=== PATIENT | male | born 1975 | race Caucasian/White ===

== ENCOUNTER 2017-05-08 04:50 | Emergency (ER) | payer SELFPAY ==
[~2017-05-08] VITALS: Ht 167.6 cm; Wt 104.3 kg
--- NOTE | 2017-05-08 05:18 | ED General ---
General Chief Complaint: General Problems/Pain Stated Complaint: POSS ALLERGIC RXN,MIND RACING Nursing Triage Note: Patient reports last wednesday the . he got off work and bought a 'bottle' of whiskey and one thing lead to another and he used meth on wednesday the . Patient reports he was okay and had been sleeping fine until the . He then began to have racing thoughts and unable to sleep. patient reports that he went and obtained more whiskey and nyquil in an attempt to sleep. Patient states it 'had the opposite effect' Nursing Sepsis Screen: No Definite Risk Source of Information: Patient History of Present Illness Date Seen by Provider: May 08, 2017 Time Seen by Provider: 05:07 Initial Comments PT ARRIVES VIA POV STATES "I THINK I DID SOME BAD DRUGS"--STATES HE USED METH ON SUNDAY 04/30, MONDAY 05/01 AND TUESDAY 05/02 "AND I WAS SLEEPING FINE" STATES "TODAY I FELT OFF" "SO I GOT 1/2 PINT OF WHISKEY AND IT HAD THE OPPOSITE EFFECT" --"I DIDN'T GET DRUNK OR SLEEPY" "BEEN HAVING RACING THOUGHTS AND CAN'T SLEEP" ALSO TOOK NYQUIL AND IT DIDN'T HELP GIVES NURSE SLIGHTLY DIFFERENT STORY PT STATES "I JUST GOT OFF HARVONI A WEEK AND A HALF AGO" PCP: DR. Katlin COLON AT [facility] Allergies and Home Medications Allergies Coded Allergies: No Known Drug Allergies (Unverified , 10/08/15) Home Medications No Active Prescriptions or Reported Meds Patient Home Medication List Home Medication List Reviewed: Yes Constitutional: other (ANXIOUS, CAN'T SLEEP) Respiratory: no symptoms reported Cardiovascular: no symptoms reported Gastrointestinal: no symptoms reported Genitourinary: no symptoms reported Musculoskeletal: no symptoms reported Skin: no symptoms reported Psychiatric/Neurological: See HPI, Anxiety Hematologic/Lymphatic: No Symptoms Reported Immunological/Allergic: no symptoms reported Past Caxcnnp-Kyxdbe-Tnliju Hx Patient Social History Alcohol Use: Occasionally Uses (HEAVY AT TIMES) Recreational Drug Use: Yes (THC, + IV METH USE ) Recent Foreign Travel: No Contact w/Someone Who Travel: No Recent Infectious Disease Expo: No Recent Hopitalizations: No Physical Abuse: No Sexual Abuse: No Surgeries History of Surgeries: Yes (TUBES IN EARS) Surgeries: Ear Surgery, Gallbladder Respiratory History of Respiratory Disorde: No Cardiovascular History of Cardiac Disorders: No Neurological History of Neurological Disord: No Gastrointestinal History of Gastrointestinal Di: Yes (HEPATITIS C--TX WITH HARVONI-COMPLETED 2017) Gastrointestinal Disorders: Hepatitis Musculoskeletal History of Musculoskeletal Dis: No Endocrine History of Endocrine Disorders: No HEENT History of HEENT Disorders: Yes HEENT Disorders: Chronic Ear Infection Cancer History of Cancer: No Psychosocial History of Psychiatric Problem: No Suicide Risk Score: 0 Integumentary History of Skin or Integumenta: No Blood Transfusions History of Blood Disorders: No Physical Exam Vital Signs Vital Signs - First Documented 05/08/17 05:01 Temp 98.2 Pulse 118 Resp 18 B/P (MAP) 154/99 (117) Pulse Ox 100 Capillary Refill : Less Than 3 Seconds General Appearance: Anxious, Other (FREQUENT CLEARING THROAT, MILD HYPERVENTILATION) HEENT: PERRL/EOMI Respiratory: Normal Breath Sounds, No Accessory Muscle Use, No Respiratory Distress Cardiovascular: Regular Rate, Rhythm, No Murmur Extremity: Normal Inspection Neurologic/Psychiatric: Alert, Oriented x3, No Motor/Sensory Deficits, reference services head II- XII Norm as Tested, Other (ANXIOUS, RATE OF SPEECH SLIGHTLY ELEVATED) Skin: Normal Color, Warm/Dry, Other (SORES/SCARS/SCABS TO FACE) Progress/Results/Core Measures Suspected Sepsis Recent Fever Within 48 Hours: No Infection Criteria Present: None New/Unexplained Altered Menta: No Sepsis Screen: No Definite Risk Sepsis Diagnosis: SIRS Temperature:98.2 Pulse: 118 Respiratory Rate: 18 Laboratory Tests 05/08/17 05:20: White Blood Count 6.0 Blood Pressure 154 /99 Mean: 117 Laboratory Tests 05/08/17 05:20: Creatinine 0.94, Platelet Count 271, Total Bilirubin 0.7 Results/Orders Lab Results Laboratory Tests Test 05/08/17 05:20 Range/Units White Blood Count 6.0 4.3-11.0 10^3/uL Red Blood Count 4.97 4.35-5.85 10^6/uL Hemoglobin 15.8 13.3-17.7 G/DL Hematocrit 44 40-54 % Mean Corpuscular Volume 88 80-99 FL Mean Corpuscular Hemoglobin 32 25-34 PG Mean Corpuscular Hemoglobin Concent 36 32-36 G/DL Red Cell Distribution Width 13.2 10.0-14.5 % Platelet Count 271 130-400 10^3/uL Mean Platelet Volume 9.8 7.4-10.4 FL Neutrophils (%) (Auto) 59 42-75 % Lymphocytes (%) (Auto) 31 12-44 % Monocytes (%) (Auto) 9 0-12 % Eosinophils (%) (Auto) 1 0-10 % Basophils (%) (Auto) 0 0-10 % Neutrophils # (Auto) 3.5 1.8-7.8 X 10^3 Lymphocytes # (Auto) 1.9 1.0-4.0 X 10^3 Monocytes # (Auto) 0.5 0.0-1.0 X 10^3 Eosinophils # (Auto) 0.1 0.0-0.3 10^3/uL Basophils # (Auto) 0.0 0.0-0.1 10^3/uL Urine Color YELLOW Urine Clarity CLEAR Urine pH 6 5-9 Urine Specific Nixon 1.010 L 1.016-1.022 Urine Protein 2+ H NEGATIVE Urine Glucose (UA) NEGATIVE NEGATIVE Urine Ketones 3+ H NEGATIVE Urine Nitrite NEGATIVE NEGATIVE Urine Bilirubin NEGATIVE NEGATIVE Urine Urobilinogen NORMAL NORMAL MG/DL Urine Leukocyte Esterase NEGATIVE NEGATIVE Urine RBC (Auto) NEGATIVE NEGATIVE Urine RBC NONE /HPF Urine WBC NONE /HPF Urine Squamous Epithelial Cells RARE /HPF Urine Crystals NONE /LPF Urine Bacteria TRACE /HPF Urine Casts NONE /LPF Urine Mucus NEGATIVE /LPF Urine Culture Indicated NO Sodium Level 138 135-145 MMOL/L Potassium Level 3.9 3.6-5.0 MMOL/L Chloride Level 101 98-107 MMOL/L Carbon Dioxide Level 23 21-32 MMOL/L Anion Gap 14 5-14 MMOL/L Blood Urea Nitrogen 13 7-18 MG/DL Creatinine 0.94 0.60-1.30 MG/DL Estimat Glomerular Filtration Rate > 60 BUN/Creatinine Ratio 14 Glucose Level 115 H 70-105 MG/DL Calcium Level 10.0 8.5-10.1 MG/DL Total Bilirubin 0.7 0.1-1.0 MG/DL Aspartate Amino Transf (AST/SGOT) 23 5-34 U/L Alanine Aminotransferase (ALT/SGPT) 22 0-55 U/L Alkaline Phosphatase 67 40-136 U/L Total Protein 8.7 H 6.4-8.2 GM/DL Albumin 4.3 3.2-4.5 GM/DL Salicylates Level < 5.0 L 5.0-20.0 MG/DL Urine Opiates Screen NEGATIVE NEGATIVE Urine Oxycodone Screen NEGATIVE NEGATIVE Urine Methadone Screen NEGATIVE NEGATIVE Urine Propoxyphene Screen NEGATIVE NEGATIVE Acetaminophen Level < 10 L 10-30 UG/ML Urine Barbiturates Screen NEGATIVE NEGATIVE Ur Tricyclic Antidepressants Screen NEGATIVE NEGATIVE Urine Phencyclidine Screen NEGATIVE NEGATIVE Urine Amphetamines Screen NEGATIVE NEGATIVE Urine Methamphetamines Screen NEGATIVE NEGATIVE Urine Benzodiazepines Screen NEGATIVE NEGATIVE Urine Cocaine Screen NEGATIVE NEGATIVE Urine Cannabinoids Screen NEGATIVE NEGATIVE Serum Alcohol < 10 <10 MG/DL My Orders Orders - NABEEL HUNTER DO Acetaminophen (05/08/17 05:12) Alcohol (05/08/17 05:12) Cbc With Automated Diff (05/08/17 05:12) Comprehensive Metabolic Panel (05/08/17 05:12) Drug Screen Stat (Urine) (05/08/17 05:12) Salicylate (05/08/17 05:12) Ua Culture If Indicated (05/08/17 05:12) Vital Signs/I&O Vital Sign - Last 12Hours 05/08/17 05:01 Temp 98.2 Pulse 118 Resp 18 B/P (MAP) 154/99 (117) Pulse Ox 100 Capillary Refill : Less Than 3 Seconds Blood Pressure Mean: 117 Progress Note : Progress Note AT DISMISSAL, WANTS A WORK NOTE Departure Impression Impression: Primary Impression: Anxiety Additional Impressions: Insomnia History of illicit drug use Disposition: 01 HOME, SELF-CARE Condition: Stable Departure-Patient Inst. Referrals: ZHEN COLON MD Patient Instructions: ALCOHOL AND SUBSTANCE ABUSE, Anxiety, Adult (DC), Insomnia (DC), Tips for Getting Better Sleep Add. Discharge Instructions: HOME, REST YOU MAY TAKE 2 TYLENOL PM WHEN YOU GET HOME FOR SLEEP LOTS OF CLEAR LIQUIDS--WATER, BROTH, JELLO, GATORADE---NO ALCOHOL NO ALCOHOL OR DRUGS FOLLOW UP WITH [facility] IN 2-3 DAYS IF NO BETTER All discharge instructions reviewed with patient and/or family. Voiced understanding. Scripts No Active Prescriptions or Reported Meds Work/School Note: Work Release Form Date Seen in the Emergency Department: May 08, 2017 NABEEL HUNTER DO May 08, 2017 05:18
[2017-05-08 05:31] LABS: BILIRUBIN,URINE NEGATIVE (NEGATIVE); CLARITY,URINE CLEAR; COLOR,URINE YELLOW; GLUCOSE, URINE (UA) NEGATIVE (NEGATIVE); KETONES,URINE 3+ (NEGATIVE); LEUKOCYTE ESTERASE ,URINE NEGATIVE (NEGATIVE); NITRITE,URINE NEGATIVE (NEGATIVE); PH,URINE 6 (5-9); PROTEIN,URINE 2+ (NEGATIVE); UROBILINOGEN,URINE NORMAL (NORMAL)
[2017-05-08 05:35] LABS: BASOPHILS % (AUTO) 0 % (0-10); EOSINOPHILS # (AUTO) 0.1 10^3/uL (0.0-0.3); EOSINOPHILS % (AUTO) 1 % (0-10); HEMATOCRIT 44 % (40-54); HEMOGLOBIN 15.8 G/DL (13.3-17.7); LYMPHOCYTES # (AUTO) 1.9 X 10^3 (1.0-4.0); LYMPHOCYTES % (AUTO) 31 % (12-44); MEAN CORPUSCULAR HEMOGLOBIN 32 PG (25-34); MEAN CORPUSCULAR HGB CONC 36 G/DL (32-36); MEAN CORPUSCULAR VOLUME 88 FL (80-99); MEAN PLATELET VOLUME 9.8 FL (7.4-10.4); MONOCYTES # (AUTO) 0.5 X 10^3 (0.0-1.0); MONOCYTES % (AUTO) 9 % (0-12); NEUTROPHILS # (AUTO) 3.5 X 10^3 (1.8-7.8); NEUTROPHILS % (AUTO) 59 % (42-75); PLATELET COUNT 271 10^3/uL (130-400); RED BLOOD COUNT 4.97 10^6/uL (4.35-5.85); RED CELL DISTRIBUTION WIDTH 13.2 % (10.0-14.5)
[2017-05-08 05:39] LABS: BACTERIA,URINE TRACE /HPF; SQUAMOUS EPITHELIAL CELL,UR RARE /HPF
[2017-05-08 05:43] LABS: AMPHETAMINE SCREEN, URINE NEGATIVE (NEGATIVE); BARBITURATE SCREEN URINE NEGATIVE (NEGATIVE); BENZODIAZEPINES SCREEN URINE NEGATIVE (NEGATIVE); CANNABINOID SCREEN, URINE NEGATIVE (NEGATIVE); COCAINE SCREEN URINE NEGATIVE (NEGATIVE); METHADONE STAT NEGATIVE (NEGATIVE); METHAMPHETAMINE SCREEN URINE S NEGATIVE (NEGATIVE); OPIATE SCREEN URINE NEGATIVE (NEGATIVE); OXYCODONE STAT NEGATIVE (NEGATIVE); PROPOXYPHENE STAT NEGATIVE (NEGATIVE); TRICYCLIC ANTIDEPRESSANTS SCRE NEGATIVE (NEGATIVE)
[2017-05-08 05:53] LABS: ACETAMINOPHEN < 10 UG/ML (10-30); ALANINE AMINOTRANSFERASE 22 U/L (0-55); ALBUMIN 4.3 GM/DL (3.2-4.5); ALKALINE PHOSPHATASE 67 U/L (40-136); BILIRUBIN,TOTAL 0.7 MG/DL (0.1-1.0); BUN/CREATININE RATIO 14; CARBON DIOXIDE 23 MMOL/L (21-32); CHLORIDE 101 MMOL/L (98-107); CREATININE SERUM 0.94 MG/DL (0.60-1.30); GFR ESTIMATED > 60; GLUCOSE 115 MG/DL (70-105); POTASSIUM 3.9 MMOL/L (3.6-5.0); SALICYLATE < 5.0 MG/DL (5.0-20.0); SODIUM 138 MMOL/L (135-145); TOTAL PROTEIN 8.7 GM/DL (6.4-8.2)
[2017-05-08 06:16] VITALS: BP 154/99
== END 2017-05-08 06:16 | disposition home or self-care (01) ==
LOC: EDUNIT# 04:50 → ER 04:51
DX: F41.9 Anxiety disorder, unspecified (principal); G47.00 Insomnia, unspecified; F12.10 Cannabis abuse, uncomplicated; F15.10 Other stimulant abuse, uncomplicated; B19.20 Unspecified viral hepatitis C without hepatic coma
CPT/HCPCS: 36415; 80053; 80306; 80320; 80329; 81000; 85025; 99283

== ENCOUNTER 2022-07-30 04:14 | Emergency (ER) | payer BC ==
[2022-07-30 04:28] LABS: BASOPHILS % (AUTO) 1 % (0-10); EOSINOPHILS # (AUTO) 0.1 10^3/uL (0.0-0.3); EOSINOPHILS % (AUTO) 1 % (0-10); HEMATOCRIT 42 % (40-54); HEMOGLOBIN 14.6 g/dL (13.3-17.7); LYMPHOCYTES % (AUTO) 23 % (12-44); MEAN CORPUSCULAR HEMOGLOBIN 31 pg (25-34); MEAN CORPUSCULAR HGB CONC 35 g/dL (32-36); MEAN CORPUSCULAR VOLUME 89 fL (80-99); MEAN PLATELET VOLUME 10.1 fL (9.0-12.2); MONOCYTES # (AUTO) 0.8 10^3/uL (0.0-1.0); MONOCYTES % (AUTO) 9 % (0-12); NEUTROPHILS # (AUTO) 5.8 10^3/uL (1.8-7.8); NEUTROPHILS % (AUTO) 67 % (42-75); PLATELET COUNT 235 10^3/uL (130-400); WHITE BLOOD COUNT 8.7 10^3/uL (4.3-11.0)
--- NOTE | 2022-07-30 04:29 | ED General ---
General Stated Complaint: POSS STROKE SYMPTOMS Source of Information: Patient History of Present Illness Date Seen by Provider: Jul 30, 2022 Time Seen by Provider: 04:15 Initial Comments PT ARRIVES VIA EMS [place] [address] [place] THEN CALLED 911 STATES HE "THINKS HE IS HAVING A STROKE" STATES HE HAS BEEN AWAKE FOR 3 DAYS, AND HAS BEEN USING METH STATES HE WAS "CLEAN FOR 13 MONTHS" AND "HAD A RELAPSE" STATES HE HAS BEEN EATING METH. HE STATES HE LAST USED METH LAST NIGHT--AT LEAST 24 HOURS AGO HIS SYMPTOMS BEGAN SHORTLY AFTER HE USED METH LAST NIGHT: -LEFT HAND NUMBNESS -RIGHT SIDE OF FACE "FEELS PARALYZED" -VISION IS "WEIRD" BLOOD GLUCOSE 106 FOR EMS. IS UNCLEAR WHAT SYMPTOMS ARE NEW/DIFFERENT AT THIS TIME, THEY STARTED LAST NIGHT, AND HE DID NOT SEEK CARE PT HAS EXTENSIVE IV METHAMPETAMINE USE HE HAS HISTORY OF HEPATITIS C--COMPLETED HARVONI IN 04/2017 HE HAS HISTORY OF HEAVY ALCOHOL USE, DENIES RECENT USE. PCP: [facility] Allergies and Home Medications Allergies Coded Allergies: No Known Drug Allergies (Unverified , 10/08/15) Patient Home Medication List Home Medication List Reviewed: Yes No Active Prescriptions or Reported Meds Review of Systems Review of Systems Constitutional: no symptoms reported EENTM: see HPI Respiratory: no symptoms reported Cardiovascular: no symptoms reported Gastrointestinal: no symptoms reported Genitourinary: no symptoms reported Musculoskeletal: see HPI Skin: no symptoms reported Psychiatric/Neurological: See HPI Hematologic/Lymphatic: No Symptoms Reported Immunological/Allergic: no symptoms reported Past Rliyczy-Laydgq-Evirrq Hx Patient Social History Tobacco Use?: No Substance use?: Yes Substance type: Methamphetamine Additional substance use comme: HX OF IV METH USE Alcohol Use?: Yes (HX HEAVY/DAILY USE) Past Medical History Surgeries: Yes (TUBES IN EARS) Ear Surgery, Gallbladder Respiratory: No Cardiac: No Neurological: No Genitourinary: No Gastrointestinal: Yes (HEPATITIS C--TX WITH HARVONI-COMPLETED 04/2017) Hepatitis Musculoskeletal: No Endocrine: No HEENT: Yes Chronic Ear Infection Cancer: No Psychosocial: Yes (SUBSTANCE ABUSE) Integumentary: No Blood Disorders: No Physical Exam Vital Signs Vital Signs - First Documented Capillary Refill : Height, Weight, BMI Height: 5'6.00" Weight: 230lbs. oz. 104.342660gu; BMI Method:Stated General Appearance: No Apparent Distress, WD/WN, Anxious HEENT: PERRL/EOMI, Other (POOR DENTITION) Neck: Normal Inspection Respiratory: Normal Breath Sounds, No Accessory Muscle Use, No Respiratory Distress Cardiovascular: Regular Rate, Rhythm, No Edema, No JVD, No Murmur, Normal Peripheral Pulses Gastrointestinal: Non Tender, Soft Back: No CVA Tenderness Extremity: Normal Capillary Refill, Normal Inspection, Normal Range of Motion, Non Tender, No Calf Tenderness, No Pedal Edema Neurologic/Psychiatric: Alert, Oriented x3, No Motor/Sensory Deficits, disc pad plate filler II- XII Norm as Tested; No Abnormal Cerebellar Tests, No Abnormal Gait, No Aphasia, No Disoriented, No EOM Palsy, No Facial Droop, No Motor Weakness, No Sensory Deficit; Other (ANXIOUS. SPEECH CLEAR AND SOMEWHAT RAPID. ) Skin: Normal Color, Warm/Dry Progress/Results/Core Measures Suspected Sepsis SIRS Temperature: Pulse: Respiratory Rate: Laboratory Tests 07/30/22 04:20: White Blood Count 8.7 Blood Pressure / Mean: Laboratory Tests 07/30/22 04:20: Creatinine 0.85, Platelet Count 235, Total Bilirubin 1.2H Results/Orders Lab Results Laboratory Tests Test 07/30/22 04:20 07/30/22 04:45 Range/Units White Blood Count 8.7 4.3-11.0 10^3/uL Red Blood Count 4.71 4.30-5.52 10^6/uL Hemoglobin 14.6 13.3-17.7 g/dL Hematocrit 42 40-54 % Mean Corpuscular Volume 89 80-99 fL Mean Corpuscular Hemoglobin 31 25-34 pg Mean Corpuscular Hemoglobin Concent 35 32-36 g/dL Red Cell Distribution Width 13.6 10.0-14.5 % Platelet Count 235 130-400 10^3/uL Mean Platelet Volume 10.1 9.0-12.2 fL Immature Granulocyte % (Auto) 0 % Neutrophils (%) (Auto) 67 42-75 % Lymphocytes (%) (Auto) 23 12-44 % Monocytes (%) (Auto) 9 0-12 % Eosinophils (%) (Auto) 1 0-10 % Basophils (%) (Auto) 1 0-10 % Neutrophils # (Auto) 5.8 1.8-7.8 10^3/uL Lymphocytes # (Auto) 2.0 1.0-4.0 10^3/uL Monocytes # (Auto) 0.8 0.0-1.0 10^3/uL Eosinophils # (Auto) 0.1 0.0-0.3 10^3/uL Basophils # (Auto) 0.0 0.0-0.1 10^3/uL Immature Granulocyte # (Auto) 0.0 0.0-0.1 10^3/uL Sodium Level 137 135-145 MMOL/L Potassium Level 3.5 L 3.6-5.0 MMOL/L Chloride Level 103 98-107 MMOL/L Carbon Dioxide Level 21 21-32 MMOL/L Anion Gap 13 5-14 MMOL/L Blood Urea Nitrogen 15 7-18 MG/DL Creatinine 0.85 0.60-1.30 MG/DL Estimat Glomerular Filtration Rate 108 BUN/Creatinine Ratio 18 Glucose Level 116 H 70-105 MG/DL Calcium Level 9.6 8.5-10.1 MG/DL Corrected Calcium 9.3 8.5-10.1 MG/DL Magnesium Level 1.8 1.6-2.4 MG/DL Total Bilirubin 1.2 H 0.1-1.0 MG/DL Aspartate Amino Transf (AST/SGOT) 33 5-34 U/L Alanine Aminotransferase (ALT/SGPT) 28 0-55 U/L Alkaline Phosphatase 74 40-136 U/L Total Protein 7.8 6.4-8.2 GM/DL Albumin 4.4 3.2-4.5 GM/DL Serum Alcohol < 10 <10 MG/DL Urine Color YELLOW Urine Clarity CLEAR Urine pH 6.0 5-9 Urine Specific [place] >=1.030 1.016-1.022 Urine Protein 2+ H NEGATIVE Urine Glucose (UA) NEGATIVE NEGATIVE Urine Ketones 3+ H NEGATIVE Urine Nitrite NEGATIVE NEGATIVE Urine Bilirubin 2+ H NEGATIVE Urine Urobilinogen 1.0 < = 1.0 MG/DL Urine Leukocyte Esterase NEGATIVE NEGATIVE Urine RBC (Auto) NEGATIVE NEGATIVE Urine RBC NONE /HPF Urine WBC 0-2 /HPF Urine Squamous Epithelial Cells RARE /HPF Urine Crystals NONE /LPF Urine Bacteria TRACE /HPF Urine Casts NONE /LPF Urine Mucus SMALL H /LPF Urine Culture Indicated NO Urine Opiates Screen NEGATIVE NEGATIVE Urine Oxycodone Screen NEGATIVE NEGATIVE Urine Methadone Screen NEGATIVE NEGATIVE Urine Propoxyphene Screen NEGATIVE NEGATIVE Urine Barbiturates Screen NEGATIVE NEGATIVE Ur Tricyclic Antidepressants Screen NEGATIVE NEGATIVE Urine Phencyclidine Screen NEGATIVE NEGATIVE Urine Amphetamines Screen POSITIVE H NEGATIVE Urine Methamphetamines Screen POSITIVE H NEGATIVE Urine Benzodiazepines Screen NEGATIVE NEGATIVE Urine Cocaine Screen NEGATIVE NEGATIVE Urine Cannabinoids Screen NEGATIVE NEGATIVE My Orders Orders - NABEEL HUNTER DO Ed Iv/Invasive Line Start (07/30/22 04:15) Ekg Tracing (07/30/22 04:15) Monitor-Rhythm Ecg Trace Only (07/30/22 04:15) Alcohol (07/30/22 04:15) Cbc With Automated Diff (07/30/22 04:15) Comprehensive Metabolic Panel (07/30/22 04:15) Drug Screen Stat (Urine) (07/30/22 04:15) Magnesium (07/30/22 04:15) Ua Culture If Indicated (07/30/22 04:15) Ct Head Wo-R/O Stroke (07/30/22 04:22) Vital Signs/I&O 07/30/22 07/30/22 04:15 04:15 Temp 36.5 Pulse 96 Resp 16 B/P (MAP) 159/96 (117) Pulse Ox 98 O2 Delivery Room Air Room Air Capillary Refill : Progress Note : Progress Note PT HAS NORMAL EXAM AND NO FOCAL DEFICITS OR OBJECTIVE EVIDENCE OF STROKE. NO STROKE ACTIVATION BASED ON EXAM AND SYMPTOMS AND ONSET > 24 HOURS. VITALS ON ADMIT: BP 151/86, HR 80'S-90'S, RR 20'S, O2 SAT 97% ON ROOM AIR VITALS AT DISMISSAL: BP 112/80, HR 86, RR 20'S, O2 SAT 985 ON ROOM AIR LABS INCLUDING CBC, CMP, ETOH, UDS, UA ORDERED CT HEAD ORDERED. UDS + FOR METH / AMPHETAMINES ALL OTHER TESTS ARE UNREMARKABLE PT WALKS OUT OF ER WITHOUT DIFFICULTY AND HAD NO COMPLAINTS AT TIME OF DISMISSAL. REVIEWED TEST RESULTS WITH PT AND , ANTICIPATED COURSE, ABSTAINING FROM DRUGS, NEED FOR FOLLOW UP, AND SUBSTANCE ABUSE TREATMENT INFORMATION GIVEN TO PT, AND RETURN PRECAUTIONS. REVIEWED PRIOR RECORDS, SINGLE ER VISIT IN 2018 FOR METHAMPHETAMINE USE ECG Initial ECG Impression Date: Jul 30, 2022 Initial ECG Impression Time: 04:29 Initial ECG Rate: 78 Initial ECG Rhythm: Normal Sinus Initial ECG Intervals: Normal Initial ECG Impression: Normal Comment INTERPRETED BY ME Diagnostic Imaging Comments CT HEAD--PER [facility] VIA FAX AT [phone] -NO ACUTE PROCESS Reviewed: Reviewed by Me Departure Impression Primary Impression: Methamphetamine use Additional Impression: SUBJECTIVE PARESTHESIAS Disposition: 01 HOME, SELF-CARE Condition: Stable Departure-Patient Inst. Decision time for Depature: 05:09 Referrals: NO,LOCAL PHYSICIAN (PCP/Family) Primary Care Physician Patient Instructions: ALCOHOL AND SUBSTANCE ABUSE, Drug Misuse and Addiction (DC), Methamphetamine Add. Discharge Instructions: LOTS OF FLUIDS--ESPECIALLY WATER AND GATORADE NO DRUGS OR ALCOHOL FOLLOW UP WITH [facility] THIS WEEK FOR FURTHER CARE--CALL IN THE MORNING TO [facility] AN APPOINTMENT NO DRIVING OR OPERATING ANY MACHINERY WHILE YOU ARE UNDER THE INFLUENCE OF DRUGS OR ALCOHOL Scripts No Active Prescriptions or Reported Meds NABEEL HUNTER DO Jul 30, 2022 04:29
[2022-07-30 04:38] LABS: ALBUMIN 4.4 GM/DL (3.2-4.5); CHLORIDE 103 MMOL/L (98-107); POTASSIUM 3.5 MMOL/L (3.6-5.0); SODIUM 137 MMOL/L (135-145)
[2022-07-30 04:40] LABS: CALCIUM 9.6 MG/DL (8.5-10.1)
[2022-07-30 04:41] LABS: GLUCOSE 116 MG/DL (70-105); TOTAL PROTEIN 7.8 GM/DL (6.4-8.2)
[2022-07-30 04:42] LABS: CARBON DIOXIDE 21 MMOL/L (21-32)
[2022-07-30 04:43] LABS: BILIRUBIN,TOTAL 1.2 MG/DL (0.1-1.0)
[2022-07-30 04:44] LABS: ALKALINE PHOSPHATASE 74 U/L (40-136); CREATININE SERUM 0.85 MG/DL (0.60-1.30); GFR ESTIMATED 108
[2022-07-30 04:45] LABS: BUN/CREATININE RATIO 18
[2022-07-30 04:47] LABS: ALANINE AMINOTRANSFERASE 28 U/L (0-55); MAGNESIUM 1.8 MG/DL (1.6-2.4)
[2022-07-30 04:53] LABS: CLARITY,URINE CLEAR; COLOR,URINE YELLOW; GLUCOSE, URINE (UA) NEGATIVE (NEGATIVE); KETONES,URINE 3+ (NEGATIVE); LEUKOCYTE ESTERASE ,URINE NEGATIVE (NEGATIVE); NITRITE,URINE NEGATIVE (NEGATIVE); PROTEIN,URINE 2+ (NEGATIVE)
[2022-07-30 04:59] LABS: BACTERIA,URINE TRACE /HPF; BILIRUBIN,URINE 2+ (NEGATIVE); SQUAMOUS EPITHELIAL CELL,UR RARE /HPF; WBC,URINE 0-2 /HPF
[2022-07-30 05:04] LABS: AMPHETAMINE SCREEN, URINE POSITIVE (NEGATIVE); BARBITURATE SCREEN URINE NEGATIVE (NEGATIVE); BENZODIAZEPINES SCREEN URINE NEGATIVE (NEGATIVE); CANNABINOID SCREEN, URINE NEGATIVE (NEGATIVE); COCAINE SCREEN URINE NEGATIVE (NEGATIVE); METHADONE STAT NEGATIVE (NEGATIVE); OPIATE SCREEN URINE NEGATIVE (NEGATIVE); OXYCODONE STAT NEGATIVE (NEGATIVE); PROPOXYPHENE STAT NEGATIVE (NEGATIVE); TRICYCLIC ANTIDEPRESSANTS SCRE NEGATIVE (NEGATIVE)
[2022-07-30 05:17] VITALS: BP 112/80
--- NOTE | 2022-07-30 07:09 | Diagnostic Imaging Report ---
EXAMINATION: CT head without contrast. TECHNIQUE: Multiple contiguous axial images were obtained through the brain without the use of intravenous contrast. All CT scans use one or more of the following dose optimizing techniques: automated exposure control, MA and/or KvP adjustment based on patient size and exam type or iterative reconstruction. HISTORY: Neurologic deficit COMPARISON: None available. FINDINGS: The ventricles and sulci are normal. No abnormal attenuation of brain parenchyma is present. No acute intracranial hemorrhage or abnormal extra-axial fluid collections are present. No hyperdense vessel. The calvarium is intact. The mastoid air cells are clear. The visualized paranasal sinuses are clear. The orbits are normal. IMPRESSION: 1. No acute intracranial abnormality. 2. Agree with preliminary interpretation. Dictated by: Dictated on workstation # [id number]
== END 2022-07-30 05:17 | disposition home or self-care (01) ==
LOC: EDUNIT# 04:14 → ER 04:15
DX: F15.90 Other stimulant use, unspecified, uncomplicated (principal); R20.2 Paresthesia of skin; Z28.311 Partially vaccinated for COVID-19
CPT/HCPCS: 70450; 80053; 80306; 81000; 83735; 85025; 93005; 93041; 99284; G0480; 36415; 80320

== ENCOUNTER 2022-09-02 06:27 | Outpatient (CLI) | payer BC ==
[~2022-09-02] VITALS: Ht 176 cm; Wt 108.0 kg
== END 2022-09-02 10:34 | disposition home or self-care (01) ==
LOC: PREOP 06:27
PROVIDERS: ATTEND Surgery
DX: Z01.818 Encounter for other preprocedural examination (principal)

== ENCOUNTER 2022-09-07 10:18 | Day surgery (SDC) | payer BC ==
[~2022-09-07] VITALS: Ht 176 cm; Wt 108.0 kg
[2022-09-07] MEDS ORDERED: LACTATED RINGERS 1,000 ML IV STA (10:27)
--- NOTE | 2022-09-07 10:40 | Progress Note-Pre Operative ---
Pre-Operative Progress Note Date of Available H&P: Aug 27, 2022 Date H&P Reviewed: Sep 07, 2022 Time H&P Reviewed: 10:39 History & Physical: H&P Reviewed, Patient Examed, No changes noted Pre-Operative Diagnosis: screening LUCERO ARCE DO Sep 07, 2022 10:40
[2022-09-07 10:50] LABS: AMPHETAMINE SCREEN, URINE NEGATIVE (NEGATIVE); BARBITURATE SCREEN URINE NEGATIVE (NEGATIVE); BENZODIAZEPINES SCREEN URINE NEGATIVE (NEGATIVE); CANNABINOID SCREEN, URINE NEGATIVE (NEGATIVE); COCAINE SCREEN URINE NEGATIVE (NEGATIVE); METHADONE STAT NEGATIVE (NEGATIVE); OPIATE SCREEN URINE NEGATIVE (NEGATIVE); OXYCODONE STAT NEGATIVE (NEGATIVE); PROPOXYPHENE STAT NEGATIVE (NEGATIVE); TRICYCLIC ANTIDEPRESSANTS SCRE NEGATIVE (NEGATIVE)
[2022-09-07 11:05] VITALS: BP 139/94
--- NOTE | 2022-09-07 11:44 | Progress Note-Post Operative ---
Post-Operative Progess Note Surgeon (s)/Applied Psychology Professor (s) Surgeon LUCERO ARCE DO Applied Psychology Professor: none Pre-Operative Diagnosis screening Post-Operative Diagnosis Diverticula int hemorrhoids Procedure & Operative Findings Date of Procedure 09/07/22 Procedure Performed/Findings Colonoscopy PROCEDURE NOTE: After informed consent was obtained, the patient was brought to the endoscopy suite, placed in bed in left lateral decubitus position. He was administered IV sedation by the CUSTOMER ENGINEER who then monitored his vitals the entire time, heart rate, blood pressure and pulse ox and the scope was inserted, pushed all the way to about 150 cm and pushed into the cecum, took a picture of appendiceal orifice and noted the ileocecal valve. Then slowly withdrew the scope insufflating to look circumferentially at the dubois starting in the cecum, up the ascending colon to the hepatic flexure, then down the transverse colon, splenic flexure, into the descending colon down in the sigmoid and then into the rectal vault and retroflexed the scope. Took a picture of the internal hemorrhoids. I saw one or two small diverticula and took a picture. The patient tolerated the procedure. He was recovered in endoscopy suite. Recommended for repeat colonoscopy in 10 years. Anesthesia Type IV sedation by CUSTOMER ENGINEER Estimated Blood Loss Estimated blood loss (mL): none Specimens/Packing Specimens Removed none LUCERO ARCE DO Sep 07, 2022 11:44
--- NOTE | 2022-09-07 11:44 | Endoscopy Discharge Instruct ---
Endo Procedure/Findings Findings 1.: Diverticulosis 2.: Internal Hemorrhoids Discharge Instructions - Activity: You might feel a little sleepy until tomorrow. This is due to the medicine you received to relax you. Until tomorrow, you should: NOT drive a car, operate machinery or power tools. NOT drink any alcoholic beverages. NOT make any important decisions or sign importortant papers. Do not return to work until tomorrow, unless otherwise instructed. Resume previous activities tomorrow. Diet: Start by taking liquids. If you tolerate liquids, advance to solid food. 1.: Colonscopy in 10 years Notify Physician - If you experience excessive bleeding, unusual abdominal pain, fever, or chest pain, contact your doctor immediately. Follow-Up: Other Follow up in my office in a week LUECRO ARCE DO Sep 07, 2022 11:44
[2022-09-07 11:45] VITALS: BP 116/71
[2022-09-07 11:49] VITALS: BP 116/67
[2022-09-07 11:50] VITALS: BP 124/79
--- NOTE | 2022-09-07 11:50 | Anesthesia-General Post-Op ---
MAC Patient Condition Mental Status/LOC: Same as Preop Cardiovascular: Satisfactory Nausea/Vomiting: Absent Respiratory: Satisfactory Pain: Controlled Complications: Absent Post Op Complications Complications None Follow Up Care/Instructions Patient Instructions None needed. Anesthesiology Discharge Order Discharge Order Patient is doing well, no complaints, stable vital signs, no apparent adverse anesthesia problems. No complications reported per nursing. IRVING CONCEPCION CRNA Sep 07, 2022 11:50
[2022-09-07 12:02] VITALS: BP 124/79
== END 2022-09-07 12:14 | disposition home or self-care (01) ==
LOC: ENDO 10:18
PROVIDERS: ATTEND Surgery
DX: Z12.11 Encounter for screening for malignant neoplasm of colon (principal); K57.30 Diverticulosis of large intestine without perforation or abscess without bleeding; K64.8 Other hemorrhoids; Z87.891 Personal history of nicotine dependence; E66.9 Obesity, unspecified; Z68.34 Body mass index [BMI] 34.0-34.9, adult
CPT/HCPCS: 80306